=== PATIENT | female | born 1985 ===

== ENCOUNTER 2021-05-12 09:15 | Day surgery (SDC) | payer BC ==
[~2021-05-12] VITALS: Ht 162.6 cm; Wt 67.5 kg
--- NOTE | 2021-05-12 09:31 | NUR ---
History, Chart, Medications and Allergies reviewed before start of procedure. Patient confirms NPO status and agrees with scheduled surgery. Lungs clear T/O to Auscultation. Patient States Post-Procedure ride home has been arranged with her .
[2021-05-12] MEDS ORDERED: ENSKYCE 28 TAB1 EACH PO (09:47)
[2021-05-12] MEDS ORDERED: IBUP200 PO (09:48)
--- NOTE | 2021-05-12 10:19 | NUR ---
05/12/21 1019 CAREY BERGER History, Chart, Medications and Allergies reviewed before start of procedure. Patient confirms NPO status and agrees with scheduled surgery. 3-LEAD EKG REVIEWED WITH PHYSICIAN PRIOR TO START OF PROCEDURE. MONITOR INTACT WITH CONTINUOUS PULSE OXIMETRY AND INTERMITTENT BP. PATIENT DETERMINED TO BE ASA APPROPRIATE FOR PROPOFOL SEDATION PRIOR TO START OF PROCEDURE BY DR. ESPINOZA. 02 VIA POM.
--- NOTE | 2021-05-12 11:21 | NUR ---
Patient up to Ambulate independently. Gait steady. Discharge instructions reviewed with patient. Patient verbalizes understanding. Copy given to patient to take home. Discharged via wheelchair to private car for ride home.
== END 2021-05-12 22:43 | disposition home or self-care (01) ==
LOC: ORSCMMR 09:15 → ORSCSDS 10:15 → ORSCMMR 10:15 → ORD 10:15 → ORSCMMR 22:43
DX: K21.9 Gastro-esophageal reflux disease without esophagitis (principal); K31.7 Polyp of stomach and duodenum; R13.14 Dysphagia, pharyngoesophageal phase; K44.9 Diaphragmatic hernia without obstruction or gangrene; K29.70 Gastritis, unspecified, without bleeding; K58.9 Irritable bowel syndrome, unspecified
CPT/HCPCS: 88305; 88342; J2250; J2704; J7120

== ENCOUNTER → 2022-01-07 | Outpatient (CLI) | payer BC ==
[~2022-01-07] MED LIST: ENSKYCE 28 TAB1 EACH PO; IBUP200 PO
[2022-01-08 15:09] LABS: HPV 16 Negative (Negative); HPV 18 Negative (Negative); HPV OTHER HR TYPES Negative (Negative)
== END | disposition home or self-care (01) ==
LOC: LAB 10:00 → LAB SHORT 10:00
PROVIDERS: Obstetrics & Gynecology
DX: Z12.4 Encounter for screening for malignant neoplasm of cervix (principal)
CPT/HCPCS: 87624; G0123